=== PATIENT | male | born 1955 | race Caucasian/White ===

== ENCOUNTER → 2020-11-01 | Outpatient (CLI) | payer MEDICARE, BC ==
[~2020-11-01] MED LIST: AMLO-211 PO; LOSA1TAB19 PO; POTASSIUM PO
== END | disposition home or self-care (01) ==
LOC: STAR 10:09
PROVIDERS: ATTEND Urology
DX: Z01.812 Encounter for preprocedural laboratory examination (principal); Z20.828 Contact with and (suspected) exposure to other viral communicable diseases
CPT/HCPCS: 87635; 93005

== ENCOUNTER 2020-11-07 09:47 | Day surgery (SDC) | payer MEDICARE, BC ==
[~2020-11-07] VITALS: Ht 175.3 cm; Wt 90.5 kg
[2020-11-07] MEDS ORDERED: POTA15TA9 PO (10:27)
[2020-11-07] MEDS ORDERED: LOSA1TAB25 PO (10:27)
[2020-11-07] MEDS ORDERED: CHLO25TA PO (10:27)
[2020-11-07 10:28] VITALS: BP 154/89
[2020-11-07] MEDS ORDERED: ACET-1600 PO (10:28)
[2020-11-07] MEDS ORDERED: LACTATED RINGERS 1,000 ML IV SCH (10:30)
[2020-11-07] MEDS ORDERED: CHLORHEXIDINE 15 ML UDC MM ONE (10:30)
[2020-11-07] MEDS ORDERED: MIDAZOLAM 1 MG/ML, 2ML ONE (12:04)
[2020-11-07] MEDS ORDERED: FENTANYL PF 100 MCG/2ML ONE (12:04)
[2020-11-07] MEDS ORDERED: LORazepam 2 MG/ML, 1ML IVPush PRN (12:30)
[2020-11-07] MEDS ORDERED: hydrALAzine 20 MG/ML, 1ML IV PRN (12:30)
[2020-11-07] MEDS ORDERED: FENTANYL PF 100 MCG/2ML IV PRN (12:30)
[2020-11-07] MEDS ORDERED: ONDANSETRON 2MG/ML, 2ML IVPush PRN (12:30)
[2020-11-07] MEDS ORDERED: POTASSIUM CHLORIDE IV ONE (12:30)
[2020-11-07] MEDS ORDERED: POTASSIUM CHLORIDE 20 MEQ in SODIUM CHLORIDE 0.9% 250 ML IV ONE (12:30)
[2020-11-07] MEDS ORDERED: SODIUM CHLORIDE 0.9% IV ONE (12:30)
[2020-11-07] MEDS ORDERED: PROMETHAZINE 25 MG SUPP PR PRN (12:30)
[2020-11-07] MEDS ORDERED: LABETALOL 5MG/ML, 20ML IV PRN (12:30)
[2020-11-07] MEDS ORDERED: HYDROmorphone 1 MG/ML, 1ML INJ IVPush PRN (12:30)
[2020-11-07] MEDS ORDERED: PROMETHAZINE 25 MG/ML, 1ML IVPush PRN (12:30)
[2020-11-07] MEDS ORDERED: ACETAMINOPHEN 325 MG TABLET PO PRN (12:30)
[2020-11-07] MEDS ORDERED: OXYcodone 5 MG/5 ML ORAL.SOL UDC PO PRN (12:30)
[2020-11-07] MEDS ORDERED: VANCOMYCIN 1,000 MG ONE (12:56)
== END 2020-11-07 15:40 | disposition home or self-care (01) ==
LOC: OUT 09:47
PROVIDERS: ATTEND Urology
DX: N20.0 Calculus of kidney (principal); N52.9 Male erectile dysfunction, unspecified; I10 Essential (primary) hypertension; E87.6 Hypokalemia; Z79.899 Other long term (current) drug therapy; Z87.440 Personal history of urinary (tract) infections; Z87.442 Personal history of urinary calculi; Z91.011 Allergy to milk products; Z91.013 Allergy to seafood; Z84.1 Family history of disorders of kidney and ureter; Z80.9 Family history of malignant neoplasm, unspecified; Z82.49 Family history of ischemic heart disease and other diseases of the circulatory system
CPT/HCPCS: 36415; 50590; 84132; J2250; J3010; J3370; J3480; J7050; J7120

== ENCOUNTER → 2020-12-20 | Outpatient (CLI) | payer MEDICARE, BC ==
[~2020-12-20] MED LIST changes: +ACET-1600 PO; +CHLO25TA PO; +LOSA1TAB25 PO; +POTA15TA9 PO
== END | disposition home or self-care (01) ==
LOC: STAR 11:51
PROVIDERS: ATTEND Urology
DX: Z20.822 Contact with and (suspected) exposure to COVID-19 (principal); N20.0 Calculus of kidney
CPT/HCPCS: 87635

== ENCOUNTER 2020-12-26 05:38 | Day surgery (SDC) | payer MEDICARE, BC ==
[~2020-12-26] VITALS: Ht 175.3 cm; Wt 93.0 kg
[2020-12-26 06:38] VITALS: BP 143/95
[2020-12-26] MEDS ORDERED: CHLORHEXIDINE 15 ML UDC MM ONE (07:00)
[2020-12-26] MEDS ORDERED: LACTATED RINGERS 1,000 ML IV SCH (07:00)
[2020-12-26] MEDS ORDERED: LABETALOL 5MG/ML, 20ML IV PRN (07:30)
[2020-12-26] MEDS ORDERED: PROMETHAZINE 25 MG SUPP PR PRN (07:30)
[2020-12-26] MEDS ORDERED: HYDROmorphone 1 MG/ML, 1ML INJ IVPush PRN (07:30)
[2020-12-26] MEDS ORDERED: ACETAMINOPHEN 325 MG TABLET PO PRN (07:30)
[2020-12-26] MEDS ORDERED: FENTANYL PF 100 MCG/2ML ONE (07:30)
[2020-12-26] MEDS ORDERED: LORazepam 2 MG/ML, 1ML IVPush PRN (07:30)
[2020-12-26] MEDS ORDERED: FENTANYL PF 100 MCG/2ML IV PRN (07:30)
[2020-12-26] MEDS ORDERED: hydrALAzine 20 MG/ML, 1ML IV PRN (07:30)
[2020-12-26] MEDS ORDERED: MIDAZOLAM 1 MG/ML, 2ML ONE (07:30)
[2020-12-26] MEDS ORDERED: METHOCARBAMOL 1,000 MG in DEXTROSE 5% 100 ML IV PRN (07:30)
[2020-12-26] MEDS ORDERED: ONDANSETRON 2MG/ML, 2ML IVPush PRN (07:30)
[2020-12-26] MEDS ORDERED: PROMETHAZINE 25 MG/ML, 1ML IVPush PRN (07:30)
[2020-12-26] MEDS ORDERED: OXYcodone 5 MG/5 ML ORAL.SOL UDC PO PRN (07:30)
[2020-12-26] MEDS ORDERED: PROPOFOL 10 MG/ML, 20ML ONE (09:54)
[2020-12-26] MEDS ORDERED: CEFAZOLIN 1,000 MG ONE (09:54)
[2020-12-26] MEDS ORDERED: ONDANSETRON 2MG/ML, 2ML ONE (09:54)
[2020-12-26] MEDS ORDERED: ACETAMINOPHEN 500 MG TABLET PO SCH (10:00)
[2020-12-26] MEDS ORDERED: EPHEDRINE 50 MG/ML, 1ML ONE (15:54)
[2020-12-27] MEDS ORDERED: CHLORTHALIDONE 25 MG TABLET PO SCH (09:00)
[2020-12-27] MEDS ORDERED: AMLODIPINE 10 MG TAB PO SCH (09:00)
== END 2020-12-26 12:00 | disposition home or self-care (01) ==
LOC: OUT 05:38
PROVIDERS: ATTEND Urology
DX: N21.0 Calculus in bladder (principal); N20.0 Calculus of kidney; N40.1 Benign prostatic hyperplasia with lower urinary tract symptoms; R39.12 Poor urinary stream; E83.39 Other disorders of phosphorus metabolism; I10 Essential (primary) hypertension; G47.33 Obstructive sleep apnea (adult) (pediatric); Z79.899 Other long term (current) drug therapy; Z87.442 Personal history of urinary calculi; Z91.011 Allergy to milk products; Z91.013 Allergy to seafood; Z80.9 Family history of malignant neoplasm, unspecified; Z82.49 Family history of ischemic heart disease and other diseases of the circulatory system; Z84.1 Family history of disorders of kidney and ureter
CPT/HCPCS: 50590; 52318; 82360; 88300; C1758; C1769; J0690; J2250; J2405; J2704; J3010; J7120